=== PATIENT | male | born 2000 | race Caucasian/White ===

== ENCOUNTER 2022-08-23 06:46 | Emergency (ER) | payer SELFPAY ==
[2022-08-23 06:43] VITALS: BMI 28.8
--- NOTE | 2022-08-23 06:45 | CT_ITS ---
FINAL REPORT TECHNIQUE: Thin section axial images were obtained through the abdomen after intravenous contrast. Reconstruction images were obtained from the axial data. Exam was performed using dose reduction techniques. CLINICAL HISTORY: ABD pain, n/v COMPARISON: none FINDINGS: The lung bases are clear. The liver is homogeneous. The gallbladder is present. The spleen, adrenal glands, and pancreas are unremarkable. There is no hydronephrosis or solid renal mass. Abdominal GI tract is without acute abnormality. There is no abdominal lymphadenopathy or ascites. The pelvic solid organs are unremarkable. The pelvic portions of the GI tract, including the appendix, are without acute abnormality. There is no pelvic lymphadenopathy or ascites. No acute osseous abnormalities identified. IMPRESSION: No CT evidence of acute intra-abdominal or intrapelvic abnormality. Reviewed, Interpreted and Dictated by aNyeli Leonardo MD Transcribed by Ayala Duggan Authenticated and [facility]
[2022-08-23 06:46] VITALS: BP 100/75; PULSE 118; RESP 18; TEMP 36.8; O2SAT 98; BMI 28.8
[2022-08-23 06:52] VITALS: PULSE 105; O2SAT 93
[2022-08-23 06:57] LABS: Basophils # 0.1 K/mm3 (0-0.2); Basophils % 0.5 % (0.1-2.0); Eosinophils # 0.1 K/mm3 (0.0-0.4); Eosinophils % 1.1 % (0.1-12.0); Hematocrit 47.2 % (42.0-52.0); Hemoglobin 15.8 g/dL (14.1-18.0); Lymphocytes # 0.6 K/mm3 (0.7-4.5); Lymphocytes % 5.1 % (10-50); Mean Corpuscular HGB Conc 33.5 g/dL (31.8-35.4); Mean Corpuscular Hemoglobin 27.8 pg (27.0-31.2); Mean Platelet Volume 9.2 fl (7.4-10.4); Monocytes # 0.4 K/mm3 (0.1-1.0); Monocytes % 3.7 % (1.7-9.3); Neutrophils # 10.3 K/mm3 (1.8-7.8); Neutrophils % 89.6 % (37.0-80.0); Platelet Count 301 K/mm3 (142-424); Red Blood Count 5.68 M/mm3 (4.60-6.20); Red Cell Distribution Width 14.1 % (11.5-17.5); White Blood Count 11.5 K/mm3 (4.5-13.0)
[2022-08-23 06:58] LABS: MANUAL DIFFERENTIAL MANUAL DIFFERENTIAL (MANUAL DIFF)
--- NOTE | 2022-08-23 07:01 | PC.NURSE ---
Pt to CT scan via wheelchair
[2022-08-23 07:02] LABS: Amylase 76 U/L (30-110)
[2022-08-23 07:03] LABS: Alanine Aminotransferase 48 U/L (12-78); Albumin/Globulin Ratio 1.6 (1.1-1.8); Alkaline Phosphatase 110 U/L (38-126); Aspartate Amino Transferase 32 U/L (17-59); Bilirubin,Total 2.2 mg/dl (0.2-1.3); Blood Urea Nitrogen 18 mg/dl (9-20); Calcium 9.2 mg/dl (8.4-10.2); Carbon Dioxide 22 mmol/L (22.0-30.0); Chloride 102 mmol/L (98-107); Creatinine Clearance Estimated 110 mL/min (50-200); Estimated Glomerular Filt Rate 70 ml/min (>60); GFR (African American) 85 ML/MIN (>60); Globulin 3.2 g/dL (1.3-3.2); Glucose 110 mg/dl (74-100); Lipase 46 U/L (23-300); Sodium 136 mmol/L (136-145); Total Protein,Serum 8.2 g/dl (6.3-8.2)
[2022-08-23 07:06] LABS: Lactic Acid 1.1 mmol/L (0.7-2.1)
[2022-08-23 07:08] LABS: C-Reactive Protein 34.9 mg/L (0-4)
--- NOTE | 2022-08-23 07:08 | PC.NURSE ---
pt back in room. He was given a warm blanket.
[2022-08-23 07:21] LABS: Procalcitonin 0.411 ng/mL (0.0-2.0)
[2022-08-23 07:37] LABS: Erythrocyte Sedimentation Rate 4 mm/hr (0-15)
[2022-08-23 07:38] VITALS: BP 110/71; PULSE 113; O2SAT 96
--- NOTE | 2022-08-23 07:38 | PC.NURSE ---
ROUNDED ON PT AT THIS TIME, PT SLEEPING. AWAKENS EASILY. NO NEEDS AT THIS TIME. STATES UNABLE TO PROVIDE URINE SPECIMEN. CALL LIGHT WITHIN REACH
[2022-08-23 07:46] LABS: Lymphocytes % 8 % (10-50); Monocytes % 2 % (2-9); Neutrophils % 90 % (42-76); RBC Morphology Normal; Total Cells Counted 100
[2022-08-23 07:47] LABS: Coronavirus 19, PCR Not Detected (NotDetected); Influenza A, PCR Not Detected (NotDetected); Influenza B, PCR Not Detected (NotDetected)
[2022-08-23 07:47] LABS: Platelet Estimate Normal
--- NOTE | 2022-08-23 07:57 | [facility].EDABDPAI ---
Discharge Plan Disposition Patient Disposition: Home, Self-Care Prescriptions Prescriptions: New ondansetron HCl 4 mg Tablet 4 mg PO Q8H PRN (Reason: Nausea) Qty: 20 0RF Referrals Follow up/Referrals: Provider,Referral, MD [Primary Care Provider] - See instructions Clinical Impressions Clinical Impression: Abdominal pain Instructions Patient Instructions: DI for Acute Abdominal Pain Discharge ED Provider: Karissa (ED)Marco Abdominal Pain HPI General Chief Complaint: Abdominal Pain Stated Complaint: ABD pain, nausea & vomiting Time Seen by Provider: 08/23/22 06:50 Mode of Arrival: EMS Source of Information: Patient, EMS and Medical Record Limitations: No Limitations Description of Symptoms (Recalled from ER Triage Doc. by RN): Pt arrives via ems. C/O nausea and vomiting since 2099. States that he is also having diffuse abdominal pain since the nausea began. States that the symptoms began with a a headache around 2099 last night which was treated successfully with tylenol. Denies any diarrhea. Does report having a fever at some point over the last day of 99 degrees but doesnt know exactly when he had that temperature. History of Present Illness HPI narrative: pt reports acute onset of abd pain last pm with vomiting w/o melena and no hx of diarrhea - no fever complaint: abdominal pain Onset (ago): hour(s) Consistency: intermittent Location: diffuse Severity: moderate Associated symptoms: denies other symptoms Related Data Previous Rx's Medication Instructions Recorded ondansetron HCl 4 mg tablet 4 mg PO Q8H PRN Nausea #20 tabs 08/23/22 Allergies Allergy/AdvReac Type Severity Reaction Status Date / Time Penicillins Allergy Unknown Verified 08/23/22 06:53 [facility] Disclaimer: The information contained in this section may have been updated after the patient was seen, as this information can be updated by other users. Medical History (Updated 08/23/22 @ 09:46 by Marco Hancock (ED)MD) GERD (gastroesophageal reflux disease) Social History Smoking Status: Current some day smoker alcohol intake: never current occupational status: employed Travel in the last 8 weeks: None ROS Obtained: Yes All systems reviewed & no additional complaints except as documented Physical Exam General General appearance: alert Head Head exam: normocephalic Eye Eye exam: Present PERRL and EOMI; Absent jaundice ENT ENT exam: Present mucous membranes moist Neck Neck exam: Present trachea midline Respiratory Respiratory exam: Present normal lung sounds bilaterally Cardiovascular Cardiovascular exam: Present regular rate Abdominal Exam Abdominal exam: Present soft and tenderness Abdominal tenderness: Present diffuse and mild Extremities Exam Extremities exam: Present full ROM Neurological Exam Neurological exam: Present alert, oriented X3 and CN II-XII intact; Absent motor sensory deficit Psychiatric Psychiatric exam: Present normal affect Skin Skin exam: Absent rash Medical Decision Making Medical Records Medical records reviewed: Yes I reviewed the patient's medical records. Himanshu Inquiry Pt receiving controlled substance: No Vital Signs: 08/23/22 06:46 08/23/22 06:52 08/23/22 07:38 Temperature 98.3 F Temperature Source Oral Pulse Rate 105 H 113 H Pulse Rate [Apical] 118 H Respiratory Rate 18 Blood Pressure 110/71 Blood Pressure [Right Arm] 100/75 L Blood Pressure Mean Blood Pressure Mean [Right Arm] 83 Blood Pressure Source [Right Arm] Automatic Cuff Blood Pressure Position [Right Arm] Sitting 02 Sat by Pulse Oximetry 98 93 L 96 Oxygen Delivery Method Room Air 08/23/22 08:00 08/23/22 08:30 Temperature Temperature Source Pulse Rate 110 H 109 H Pulse Rate [Apical] Respiratory Rate Blood Pressure 108/64 L 111/70 Blood Pressure [Right Arm] Blood Pressure Mean 79 80 Blood Pressure Mean [Right Arm] Blood Pressure Source [Rig
[2022-08-23 08:00] VITALS: BP 108/64; PULSE 110; O2SAT 95
--- NOTE | 2022-08-23 08:05 | PC.NURSE ---
DR ABURTO AT BEDSIDE
[2022-08-23 08:30] VITALS: BP 111/70; PULSE 109; O2SAT 98
--- NOTE | 2022-08-23 08:32 | PC.NURSE ---
checked on pt at this time, pt was sleeping when I entered room. Pt attempting to use urinal at this time to provide urine specimen.
[2022-08-23 09:03] LABS: Microscopic, Urine URINE MICROSCOPIC (MICROSCOPIC)
[2022-08-23 09:04] LABS: Appearance,Urine CLEAR (Clear); Blood, Urine Negative (Negative); Color,Urine YELLOW (Yellow); Glucose,Urine (UA) Negative (Negative); Ketones,Urine 3+ (Negative); Leukocyte Esterase,Urine Negative (Negative); Nitrate,Urine Negative (Negative); PH,Urine 6.5 (5.0-8.5); Protein,Urine Negative (Negative); Specific Gravity, Urine 1.015 (1.005-1.030)
[2022-08-23 09:13] LABS: Bilirubin,Urine 1+ (Negative)
[2022-08-23 09:19] LABS: Bacteria,Urine Trace /lpf; Mucus,Urine Trace /lpf; Squamous Epithelial Cell,Urine Occasional #/hpf (0-5)
[2022-08-23 09:26] LABS: Amphetamine/Metha Screen,Urine Negative ng/ml (<1000); Barbiturates Screen,Urine Negative ng/ml (<200)
[2022-08-23 09:27] LABS: Cannabinoid Screen,Urine Negative ng/ml (<50); Phencyclidine Screen,Urine Negative ng/ml (<25)
[2022-08-23 09:29] LABS: Cocaine Screen,Urine Negative ng/ml (<300); Methadone Screen,Urine Negative ng/ml (<300)
[2022-08-23 09:30] LABS: Opiate Screen,Urine Negative ng/ml (<300)
--- NOTE | 2022-08-23 09:30 | PC.NURSE ---
notified dr. mccall's office pts test results are back
--- NOTE | 2022-08-23 09:39 | PC.NURSE ---
ROUNDED ON PT, WATER PROVIDED. NO FURTHER NEEDS
[2022-08-23 09:56] VITALS: BP 113/71; PULSE 106; RESP 17; TEMP 36.7; O2SAT 98
[2022-08-23 10:11] LABS: Benzodiazepines Screen,Urine Negative ng/ml (<200)
== END 2022-08-23 10:10 | disposition home or self-care (01) ==
PROVIDERS: Emergency Provider Emergency Medicine
DX: R10.9 Unspecified abdominal pain (principal); R11.2 Nausea with vomiting, unspecified; K21.9 Gastro-esophageal reflux disease without esophagitis; F17.210 Nicotine dependence, cigarettes, uncomplicated; Z20.822 Contact with and (suspected) exposure to COVID-19
CPT/HCPCS: 74177; 80053; 80305; 81001; 82150; 83605; 83690; 84145; 85007; 85025; 85651; 86140; 96361; 96374; 96375; 99285; C9803; J2405; Q9967; U0003; U0005